=== PATIENT | male | born 1950 | race Caucasian/White ===

== ENCOUNTER → 2020-03-11 14:31 | Outpatient (BNVA) | payer MEDICARE, OTHER, SELFPAY | PROVIDERS: Family Provider Internal Medicine; PCP Internal Medicine; Visit Provider Urology | DX: Z12.5 Encounter for screening for malignant neoplasm of prostate (principal); N40.1 Benign prostatic hyperplasia with lower urinary tract symptoms; R33.8 Other retention of urine | CPT/HCPCS: 81001 ==

== ENCOUNTER → 2021-03-10 10:57 | Outpatient (BNVA) | payer MEDICARE, OTHER, SELFPAY | PROVIDERS: Family Provider Internal Medicine; PCP Internal Medicine; Visit Provider Urology | DX: N40.1 Benign prostatic hyperplasia with lower urinary tract symptoms (principal); R33.8 Other retention of urine; Z12.5 Encounter for screening for malignant neoplasm of prostate | CPT/HCPCS: 81003; 84153 ==

== ENCOUNTER 2022-03-08 08:15 | Outpatient (CLI) | payer MEDICARE, OTHER, SELFPAY | END 2022-03-08 08:16 | disposition home or self-care (01) | LOC: LAB 08:18 | PROVIDERS: PCP Internal Medicine; Visit Provider Urology | DX: Z12.5 Encounter for screening for malignant neoplasm of prostate (principal); C67.5 Malignant neoplasm of bladder neck | CPT/HCPCS: 36415; 84153 ==

== ENCOUNTER → 2022-03-10 08:06 | Outpatient (BNVA) | payer MEDICARE, OTHER, SELFPAY | PROVIDERS: PCP Internal Medicine; Visit Provider Urology | DX: N40.1 Benign prostatic hyperplasia with lower urinary tract symptoms (principal); R33.8 Other retention of urine; Z12.5 Encounter for screening for malignant neoplasm of prostate | CPT/HCPCS: 51741; 51798; 81003; 99213 ==

== ENCOUNTER 2022-03-17 08:01 | Outpatient (CLI) | payer MEDICARE, OTHER, SELFPAY ==
--- NOTE | 2022-03-17 | MM_ITS ---
WS: [id number] DIAGNOSTIC BILATERAL DIGITAL BREAST TOMOSYNTHESIS MAMMOGRAPHY WITH CAD LEFT breast ultrasound, limited HISTORY: LT BREAST MASS COMPARISON: None available. TECHNIQUE: Bilateral craniocaudad, mediolateral oblique, and mediolateral views are submitted with to augie and JACE. Computer aided detection utilized. Breast composition: Fatty replacement of the breast tissue. This is a male breast. No mass or retract ion of the nipple. No enlarged lymph nodes. LEFT breast ultrasound, limited. No abnormality is identified by ultrasound. No mass or nipple retraction. MM/[place] [id number] IMPRESSION: BI-RADS: 1-Negative FOLLOW UP: See Report No mammographic or ultrasound abnormality identified.
--- NOTE | 2022-03-17 08:07 | US_ITS ---
WS: [id number] DIAGNOSTIC BILATERAL DIGITAL BREAST TOMOSYNTHESIS MAMMOGRAPHY WITH CAD LEFT breast ultrasound, limited HISTORY: LT BREAST MASS COMPARISON: None available. TECHNIQUE: Bilateral craniocaudad, mediolateral oblique, and mediolateral views are submitted with to augie and JACE. Computer aided detection utilized. Breast composition: Fatty replacement of the breast tissue. This is a male breast. No mass or retract ion of the nipple. No enlarged lymph nodes. LEFT breast ultrasound, limited. No abnormality is identified by ultrasound. No mass or nipple retraction. US/US breast LT limited* [id number] IMPRESSION: BI-RADS: 1-Negative FOLLOW UP: See Report No mammographic or ultrasound abnormality identified.
== END 2022-03-17 08:02 | disposition home or self-care (01) ==
LOC: RAD 08:02
PROVIDERS: PCP Internal Medicine; Visit Provider Internal Medicine
DX: N63.20 Unspecified lump in the left breast, unspecified quadrant (principal)
CPT/HCPCS: 76642; 77061; 77062

== ENCOUNTER 2022-08-25 07:12 | Outpatient (CLI) | payer MEDICARE, OTHER, SELFPAY ==
--- NOTE | 2022-08-25 07:36 | CT_ITS ---
WS: [id number] LDCT LUNG CANCER SCREENING TECHNIQUE: Noncontrast CT of the chest with coronal and sagittal reformatted images. CLINICAL INFORMATION: NICOTINE DEPENDENCE,CIGARETTES COMPARISON: None. DLP: 83.30 mGy.cm DIvol: Mean CTDIvol: 1.60 (mGy) All CT scans at [facility] use at least one of these dose optimization techniques: automat ed exposure control; mA and/or kV adjustment per patient size (includes targeted exams where dose is matched to clinical indication); or iterative reconstruction. FINDINGS:Mild chronic emphysematous changes. No acute pulmonary infiltrates. No focal pneumonia or pl eural fluid. A few tiny subpleural micronodules in the RIGHT lower lobe. Noncalcified nodule RIGHT lo wer lobe measuring 3.2 mm. A few calcified granulomas. No suspicious pulmonary parenchymal opacities. Normal caliber thoracic aorta. Mild aortic Calcification. Coronary calcification. No mediastinal or h ilar lymphadenopathy. No axillary lymphadenopathy. Small LEFT adrenal adenoma.Adrenal gland is normal. LEFT adrenal adenoma measures 2.1 cm. Normal GE j unction. Hypertrophic changes thoracic spine. Moderate thoracic kyphosis. CT/CT lung screening [id number] IMPRESSION: LUNG-RADS: 2-Benign Appearance or Behavior FOLLOW UP: 12 Month: Continue annual screening with LDCT
== END 2022-08-25 07:13 | disposition home or self-care (01) ==
LOC: RAD 07:14
PROVIDERS: PCP Internal Medicine; Visit Provider Internal Medicine
DX: Z12.2 Encounter for screening for malignant neoplasm of respiratory organs (principal); F17.210 Nicotine dependence, cigarettes, uncomplicated
CPT/HCPCS: 71271

== ENCOUNTER 2023-03-06 08:13 | Outpatient (CLI) | payer MEDICARE, OTHER, SELFPAY ==
[2023-03-06 09:46] LABS: PSA Screen - Urology 3.15 ng/mL (0-4)
== END 2023-03-06 08:14 | disposition home or self-care (01) ==
PROVIDERS: PCP Internal Medicine; Visit Provider Urology
DX: Z12.5 Encounter for screening for malignant neoplasm of prostate (principal)
CPT/HCPCS: 36415; G0103

== ENCOUNTER → 2023-03-09 07:50 | Outpatient (BNVA) | payer MEDICARE, OTHER, SELFPAY | PROVIDERS: PCP Internal Medicine; Visit Provider Urology | DX: N40.1 Benign prostatic hyperplasia with lower urinary tract symptoms (principal); Z12.5 Encounter for screening for malignant neoplasm of prostate; R33.8 Other retention of urine | CPT/HCPCS: 51798; 81003; 99213 ==

== ENCOUNTER 2023-12-07 13:07 | Emergency (ER) | payer MEDICARE, OTHER, SELFPAY ==
[2023-12-07 13:15] VITALS: BP 124/79; PULSE 92; RESP 18; TEMP 36.7; O2SAT 96; BMI 30.2
--- NOTE | 2023-12-07 13:42 | W.ED.WOUNDLC ---
HPI - Wound/Laceration General: Chief Complaint: Wound/Laceration Stated Complaint: cut L leg Time Seen by Provider: 12/07/23 13:42 Source: patient Mode of arrival: ambulatory History of Present Illness: 71-year-old male presents emergency room with complaints of a left calf laceration. Patient was loading it toilet onto a trailer that toilet broke and a piece of the toilet bowl COVID move the medial left lower leg. Unsure of last tetanus. 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 Celiac disease Gout Surgical History History of colonoscopy (~10/2017) 09/2018 H/O circumcision History of cholecystectomy 2019 History of esophagogastroduodenoscopy (EGD) (~10/2017) 09/2018 Family History Denies family history of Anesthesia complication Bleeding disorder Social History Smoking and tobacco/nicotine status: former use of tobacco/nicotine Alcohol intake: current Alcohol intake frequency: holidays/special occasions only Alcohol type: wine Substance/Drug Use: never Adopted: Yes Caregiver/support person: Yes Lives independently: Yes Household members: spouse Housing: House Marital status: Current occupational status: retired Physical Exam Narrative: EXAM NARRATIVE: Examination the wound patient has a 15 cm wound on the medial aspect of the left lower leg. Subcutaneous is exposed a small portion of the gastrocnemius muscle is exposed there is not significant laceration to it. A few superficial fibers appear to have been cut. Patient is able to flex and extend at the ankle without any difficulty. Bleeding is well-controlled. Nurses note states there is 2 lacerations usually 1 laceration noted the other areas were clots of blood. Wound was closed primarily with a running locking suture of 3-0 Prolene after local anesthesia. Procedures Laceration Laceration 1: Site: lower extremity Side (If applicable): left Size (cm): 15 Description: linear Depth: simple, single layer Local Anesthetic: lidocaine 1% and with epi Amount of anesthesia used (mL): 10 Pre-repair: wound explored, irrigated extensively and deep structures intact Skin layer closed with: other (Prolene) Size (cm): 3-0 Number of sutures: 1 Technique: running Course Vital Signs: Vital signs: Vital Signs Temperature 98.1 F 12/07/23 13:15 Pulse Rate 92 12/07/23 13:15 Respiratory Rate 18 12/07/23 13:15 Blood Pressure 124/79 12/07/23 13:15 Pulse Oximetry 96 12/07/23 13:15 MDM - Wound/Laceration Medical Decision Making Wound care instructions given keep wound covered when active apply topical antibiotic [id number] ointment change dressing least once a day sutures removed in 10 to 14 days return for signs of infection Medical Records I reviewed the patient's medical records. No radiology studies performed this visit Discharge Plan Discharge Patient Disposition: Home Clinical Impression: Laceration of leg, left Condition: Stable Prescriptions: No Action trazodone 50 mg tablet 25 mg PO QPM pantoprazole 40 mg tablet,delayed release (DR/EC) 40 mg PO QPM Discharge Orders: Discharge ED (Routine); Ordered 12/07/23 Ordered By: Kamar Velasquez Referrals: Eugenio Gallegos DO [Primary Care Provider] - Discharge Diet: Usual diet Discharge Activity: Increase activity as tolerated Patient Instructions: Laceration (ED), Opioid Safety, Pain Management Activity Restrictions/Additional Instructions: Thank you for choosing [facility] for your healthcare needs today. Please realize this is an emergency room and that we are providing you with a medical screening exam and this may not be complete and all inclusive of all the testing and or work up that you may need to determine your ailment or severity of your illness. It is very important that you follow up as instructed or that you return to the Emergency Department should you have concerns or if your condition changes or worsens in any way. You were seen today for a leg laceration. Stitches were applied. Apply topical eqiq-mrw-zjmswie antibiotic ointment to the wound and keep covered when you are active. Change dressing at least once a day. The sutures should be removed in 10 to 14 days. Your primary care doctor should be able to remove her sutures. If there is any sign of infection return to be reevaluated. Coding Level of Care Code ED Manager [employer] for Kenny Navarro
[2023-12-07] MEDS: lidocaine-epi 1% 20 mL INJ INJECTION (13:51)
[2023-12-07] MEDS: tetanus-dipt-pertussis 0.5 mL SDV IM (14:34)
== END 2023-12-07 14:39 | disposition home or self-care (01) ==
PROVIDERS: Emergency Provider Family Medicine; PCP Internal Medicine
DX: S81.812A Laceration without foreign body, left lower leg, initial encounter (principal); Z87.891 Personal history of nicotine dependence; W26.8XXA Contact with other sharp object(s), not elsewhere classified, initial encounter; Z23 Encounter for immunization
CPT/HCPCS: 12005; 90471; 90715; 99283

== ENCOUNTER 2025-03-05 14:37 | Emergency (ER) | payer MEDICARE, OTHER, SELFPAY ==
[2025-03-05 14:45] VITALS: BP 149/72; PULSE 59; RESP 16; TEMP 36.6; O2SAT 99; BMI 26.9
--- NOTE | 2025-03-05 16:11 | CTR_ITS ---
PROCEDURE INFORMATION: Exam: CT Abdomen And Pelvis With Contrast Exam date and time: 03/05/2025 5:32 PM Age: 74 years old Clinical indication: Abdominal pain; Generalized; Additional info: Abd pain TECHNIQUE: Imaging protocol: Computed tomography of the abdomen and pelvis with contrast. Radiation optimization: All CT scans at this facility use at least one of these dose optimization techniques: automated exposure control; mA and/or kV adjustment per patient size (includes targeted exams where dose is matched to clinical indication); or iterative reconstruction. Contrast material: OMNIPAQUE 350; Contrast volume: 100 ml; Contrast route: INTRAVENOUS (IV); COMPARISON: CT lung screening [id number] 08/25/2022 7:50 AM RADIATION DOSE METRICS: Total DLP (mGy-cm): 707.43 FINDINGS: Liver: Normal. No mass. Gallbladder and biliary ducts: The gallbladder is absent. Pancreas: Normal. No ductal dilation. Spleen: Normal. No splenomegaly. Adrenal glands: There is a 3.1 x 2.0 cm ovoid lesion in the left adrenal gland measuring 64 Hounsfield units which is indeterminate. Consider three-phase adrenal CT or adrenal MRI for further evaluation on a nonemergent basis. Kidneys and ureters: Normal. No hydronephrosis. Stomach and bowel: Unremarkable. No obstruction. No mucosal thickening. Appendix: No evidence of appendicitis. Intraperitoneal space: Unremarkable. No free air. No significant fluid collection. Vasculature: Mild stenosis in the proximal SMA secondary to soft plaque. Lymph nodes: Unremarkable. No enlarged lymph nodes. Urinary bladder: Unremarkable as visualized. Reproductive: Prostate is enlarged measuring 6.3 cm in width. Correlate with PSA. Bones/joints: Unremarkable. No acute fracture. Soft tissues: Fat containing right inguinal hernia with associated fat stranding which can be seen the setting an incarcerated hernia with fat necrosis. CT/CT abdomen pelvis w con* [id number] IMPRESSION: 1. Fat containing right inguinal hernia with associated fat stranding which can be seen the setting an incarcerated hernia with fat necrosis. 2. There is a 3.1 x 2.0 cm ovoid lesion in the left adrenal gland measuring 64 Hounsfield units which is indeterminate. Consider three-phase adrenal CT or adrenal MRI for further evaluation on a nonemergent basis.
[2025-03-05] MEDS: ondansetron 2 mg/ML SDV 2 mL 4 MG IVP (16:27)
[2025-03-05] MEDS: sodium chloride 0.9% 1,000 ML 999 ML IV (16:28)
[2025-03-05] MEDS: morphine 4 mg/mL SDV 1 mL IVP (16:28)
[2025-03-05] MEDS: morphine 4 mg/mL SDV 1 mL 2 MG IVP (16:42)
--- NOTE | 2025-03-05 16:46 | W.ED.ABDPA2 ---
Documented by User: Kamar Velasquez DO 03/06/25 08:54 HPI - Abdominal Pain General: Chief Complaint: Abdominal Pain Stated Complaint: groin hernia Time Seen by Provider: 03/05/25 16:11 History of Present Illness: 74-year-old male presents emergency room with complaints of right lower quadrant abdominal pain patient was mowing the lawn has began to have severe pain right lower quadrant with a bulge he had a bulge before usually seen able to get it to reduce on his own this time he developed nausea and vomiting with it his last normal bowel movement was this morning on arrival here it is extremely firm tender to the touch. No fever sweats or chills. Associated Symptoms: Reports nausea and vomiting; Denies chills, dysuria and fever(s) Related Data Home Medications ?Medication ?Instructions ?Recorded ?Confirmed trazodone 50 mg tablet 25 mg PO QPM 03/10/21 12/07/23 pantoprazole 40 mg tablet,delayed 40 mg PO QPM 03/10/22 12/07/23 release Allergies Allergy/AdvReac Type Severity Reaction Status Date / Time wheat Allergy celiac Verified 03/05/25 14:52 Review of Systems Const: Denies: fever(s) or chills Card: Denies: chest pain Resp: Denies: dyspnea GI: Reports: abdominal pain, nausea and vomiting : Denies: dysuria, urinary frequency or urinary urgency Musc: Denies: neck pain or back pain Skin/Breast: Denies: rash PFSH ED PFSH: Medical History Benign prostatic hyperplasia with urinary retention 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 Celiac disease Gout Surgical History History of colonoscopy (~10/2017) 09/2018 H/O circumcision History of cholecystectomy 2018 History of esophagogastroduodenoscopy (EGD) (~10/2017) 09/2018 Family History Denies family history of Anesthesia complication Bleeding disorder Social History Smoking and tobacco/nicotine status: former use of tobacco/nicotine Alcohol intake: current Alcohol intake frequency: holidays/special occasions only Alcohol type: wine Substance/Drug Use: never Adopted: Yes Caregiver/support person: Yes Lives independently: Yes Household members: spouse Housing: House Marital status: Current occupational status: retired Physical Exam Const: COMMON NORMALS: no acute distress GENERAL APPEARANCE: cooperative and comfortable ORIENTATION/CONSCIOUSNESS: Yes awake, Yes oriented to person, Yes oriented to place and Yes oriented to time HENMT: COMMON NORMALS: normocephalic, atraumatic and hearing grossly normal bilaterally HEAD & SCALP: normocephalic and atraumatic Resp: COMMON NORMALS: normal respiratory effort, No retractions, No use of accessory muscles and clear to auscultation bilaterally AUSCULTATION: clear to auscultation bilaterally Cardio: COMMON NORMALS: regular rate, regular rhythm and No murmurs present (Cardio) RATE: regular rate RHYTHM: regular rhythm GI: COMMON NORMALS: No hepatosplenomegaly present AUSCULTATION: Yes Hypoactive bowel sounds present PALPATION: Yes Tenderness to palpation present (GI), No Guarding due to palpation present (GI) and Yes No hepatosplenomegaly present OTHER: Incarcerated right inguinal hernia Extremity: COMMON NORMALS: normal to inspection, capillary refill normal, no clubbing, cyanosis or edema, no calf tenderness and no pedal edema Neuro: SENSORIUM/ORIENTATION: Yes oriented to person, Yes oriented to place and Yes oriented to time Skin: COMMON NORMALS: no rashes or lesions noted GENERAL SKIN EXAM: no rashes or lesions noted Course Vital Signs: Vital signs: Vital Signs Temperature 97.8 F 03/05/25 14:45 Pulse Rate 86 03/05/25 18:35 Respiratory Rate 16 03/05/25 18:35 Blood Pressure 151/82 03/05/25 18:35 Pulse Oximetry 96 03/05/25 18:35 Oxygen Delivery Me thod Room Air 03/05/25 18:01 MDM - Abdominal Pain Medical Decision Making After treating patient with morphine for pain was able to directly reduce the hernia was a pretty significant amount of bowel within the hernia was extremely tense but we were able to reduce with the patient in Trendelenburg it has not recurred. CT official read is awaiting wet read on the CT there appears to be some fat within the inguinal hernia defect but there is no bowel present. Patient is feeling much better he has been able to set up when he does not have any further pain. Reached out to Dr. Alexis awaiting return call additionally we are waiting on the official read on the CT. Care signed out to Dr. Glass at change of shift. See final notes for diagnosis and disposition. Patient signed out to me at shift change pending CT scan. Fortunately, CT scan shows that bowels have been adequately reduced from previous inguinal hernia. There is still small amount of fat in the right inguinal canal which shows some stranding, but symptoms are better and he can now walk and move without any pain. I spoke with on-call surgery who recommends that he follow-up in clinic and offered that he is available tomorrow if the patient is available to be seen. He will be discharged in stable and improved condition knowing that he is always welcome back in the emergency department if symptoms return, but otherwise will follow-up not emergently with Dr. Alexis Lab Data 03/05/25 16:30 03/05/25 16:30 Labs/Radiology: Radiology Impressions Abdomen/Pelvis CT 03/05/25 16:11 IMPRESSION: 1. Fat containing right inguinal hernia with associated fat stranding which can be seen the setting an incarcerated hernia with fat necrosis. 2. There is a 3.1 x 2.0 cm ovoid lesion in the left adrenal gland measuring 64 Hounsfield units which is indeterminate. Consider three-phase adrenal CT or adrenal MRI for further evaluation on a nonemergent basis. Laboratory Results WBC 10.39 10^3/uL (3.29-11.43) 03/05/25 16:30 RBC 5.45 10^6/uL (3.85-5.65) 03/05/25 16:30 Hgb 16.50 g/dL (11.27-16.99) 03/05/25 16:30 Hct 51.2 % (37-53) 03/05/25 16:30 MCV 93.9 fl (82-101) 03/05/25 16:30 MCH 30.3 pg (27-33) 03/05/25 16:30 MCHC 32.2 g/dL (30-55) 03/05/25 16:30 RDW 12.5 % (12.1-15.1) 03/05/25 16:30 Plt Count 243 10^3/cmm (157-399) 03/05/25 16:30 MPV 10.1 fL (7.4-10.4) 03/05/25 16:30 Neut % (Auto) 84.6 % 03/05/25 16:30 Lymph % (Auto) 11.3 % 03/05/25 16:30 [place] % (Auto) 3.2 % 03/05/25 16:30 Eos % (Auto) 0.0 % 03/05/25 16:30 Baso % (Auto) 0.5 % 03/05/25 16:30 Neut # (Auto) 8.80 10^3/uL (1.8-7.7) H 03/05/25 16:30 Lymph # (Auto) 1.2 10^3/uL (0.8-4.8) 03/05/25 16:30 [place] # (Auto) 0.3 10^3/uL (0.2-0.9) 03/05/25 16:30 Eos # (Auto) 0.0 10^3/uL (0.0-0.8) 03/05/25 16:30 Baso # (Auto) 0.1 10^3/uL (0.0-0.1) 03/05/25 16:30 Nucleated RBC % (auto) 0 % 03/05/25 16:30 Nucleated RBCs # 0.0 /100WBC 03/05/25 16:30 Sodium 140 mmol/L (136-145) 03/05/25 16:30 Potassium 4.0 mmol/L (3.5-5.1) 03/05/25 16:30 Chloride 106 mmol/L (98-107) 03/05/25 16:30 Carbon Dioxide 21 mmol/L (22-29) L 03/05/25 16:30 Anion Gap 17.0 (5-19) 03/05/25 16:30 BUN 23 mg/dL (8-23) 03/05/25 16:30 Creatinine 1.0 mg/dL (0.7-1.2) 03/05/25 16:30 GFR Calculation Not Reportable 03/05/25 16:30 Glucose 111 mg/dL (65-115) 03/05/25 16:30 Calculated Osmolality 294 mOsm/kg (285-295) 03/05/25 16:30 Lactic Acid 1.5 mmol/L (0.5-2.2) 03/05/25 16:30 Calcium 9.5 mg/dL (8.5-10.5) 03/05/25 16:30 Total Bilirubin 0.6 mg/dL (0.15-1.2) 03/05/25 16:30 AST 17 U/L (0-40) 03/05/25 16:30 ALT 15 U/L (0-41) 03/05/25 16:30 Alkaline Phosphatase 86 U/L (40-130) 03/05/25 16:30 Total Protein 7.4 g/dL (6.6-8.7) 03/05/25 16:30 Albumin 4.6 g/dL (3.5-5.2) 03/05/25 16:30 Globulin 2.8 g/dL (1.3-4.6) 03/05/25 16:30 Lipase 20 U/L (13-60) 03/05/25 16:30 Urine Color Yellow (Yellow) 03/05/25 17:52 Urine Appearance Cloudy (CLEAR) A 03/05/25 17:52 Urine pH 7.0 (5-7) 03/05/25 17:52 Ur Specific [place] 1.031 (1.005-1.030) H 03/05/25 17:52 Urine Protein 2+ (Negative) A 03/05/25 17:52 Urine Glucose (UA) Negative (Normal) 03/05/25 17:52 Urine Ketones 1+ (Negative) H 03/05/25 17:52 Urine Blood Negative (Negative) 03/05/25 17:52 Urine Nitrate Negative (Negative) 03/05/25 17:52 Urine Bilirubin Negative (Negative) 03/05/25 17:52 Urine Urobilinogen 0.2 mg/dL (Negative) 03/05/25 17:52 Ur Leukocyte Esterase Negative (Negative) 03/05/25 17:52 Urine RBC 0-2 /hpf (0-2) 03/05/25 17:52 Urine WBC 0-5 /hpf (0-5) 03/05/25 17:52 Ur Squamous Epith Cells 0-5 /hpf (0-5) 03/05/25 17:52 Amorphous Sediment Not Reportable 03/05/25 17:52 Urine Bacteria None seen /hpf (NONE) 03/05/25 17:52 Hyaline Casts 0.81 /lpf 03/05/25 17:52 Discharge Plan Discharge Patient Disposition: Home Clinical Impression: Inguinal hernia Condition: Stable Prescriptions: No Action trazodone 50 mg tablet 25 mg PO QPM pantoprazole 40 mg tablet,delayed release (DR/EC) 40 mg PO QPM Discharge Orders: Discharge ED (Routine); Ordered 03/05/25 Ordered By: Vaibhav Glass Referrals: Naseem Alexis MD [Physician, General Surgery] - 1-3 days Referral Note: clinic 03/06 if possible Clinical Impression: Inguinal hernia Moiz Barrera MD [Primary Care Provider, Family Practice] Discharge Diet: Usual diet Discharge Activity: Increase activity as tolerated Patient Instructions: Inguinal Hernia (ED) Activity Restrictions/Additional Instructions: CT scan shows that the hernia was successfully reduced and no longer represents a surgical emergency which has to occur immediately. That being said, hernia can return at any given time. Please do not lift heavy objects or squat down or strain too hard as this can cause the hernia to return. I spoke with the on-call surgeon who would like to see you in his clinic as soon as possible. If you have time tomorrow, he can see you in clinic. If you have any worsening symptoms or concerns you are always welcome back in the emergency department. Print Language: Tajik Sign Out Sign Out Data: Patient Sign Out occurred on 03/05/25 at 18:15. Patient's care was discussed, and care was transferred from Kamar Velasquez DO to Vaibhav Glass MD. Post-Handoff Eval: see MDM Coding Level of Care Code ED Social Media Community Manager for [employer] Fwd Documented by User: Vaibhav Glass MD 03/05/25 18:26 HPI - Abdominal Pain General: Chief Complaint: Abdominal Pain Stated Complaint: groin hernia Time Seen by Provider: 03/05/25 16:11 Related Data Home Medications ?Medication ?Instructions ?Recorded ?Confirmed trazodone 50 mg tablet 25 mg PO QPM 03/10/21 12/07/23 pantoprazole 40 mg tablet,delayed 40 mg PO QPM 03/10/22 12/07/23 release Allergies Allergy/AdvReac Type Severity Reaction Status Date / Time wheat Allergy celiac Verified 03/05/25 14:52 PFS ED PFSH: Medical History Benign prostatic hyperplasia with urinary retention 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 Celiac disease Gout Surgical History History of colonoscopy (~10/2017) 09/2018 H/O circumcision History of cholecystectomy 2018 History of esophagogastroduodenoscopy (EGD) (~10/2017) 09/2018 Family History Denies family history of Anesthesia complication Bleeding disorder Social History Smoking and tobacco/nicotine status: former use of tobacco/nicotine Alcohol intake: current Alcohol intake frequency: holidays/special occasions only Alcohol type: wine Substance/Drug Use: never Adopted: Yes Caregiver/support person: Yes Lives independently: Yes Household members: spouse Housing: House Marital status: Current occupational status: retired Course Vital Signs: Vital signs: Vital Signs Temperature 97.8 F 03/05/25 14:45 Pulse Rate 86 03/05/25 18:35 Respiratory Rate 16 03/05/25 18:35 Blood Pressure 151/82 03/05/25 18:35 Pulse Oximetry 96 03/05/25 18:35 Oxygen Delivery Me thod Room Air 03/05/25 18:01 MDM - Abdominal Pain Medical Decision Making Patient signed out to me at shift change pending CT scan. Fortunately, CT scan shows that bowels have been adequately reduced from previous inguinal hernia. There is still small amount of fat in the right inguinal canal which shows some stranding, but symptoms are better and he can now walk and move without any pain. I spoke with on-call surgery who recommends that he follow-up in clinic and offered that he is available tomorrow if the patient is available to be seen. He will be discharged in stable and improved condition knowing that he is always welcome back in the emergency department if symptoms return, but otherwise will follow-up not emergently with Dr. Alexis Lab Data 03/05/25 16:30 03/05/25 16:30 Labs/Radiology: Radiology Impressions Abdomen/Pelvis CT 03/05/25 16:11 IMPRESSION: 1. Fat containing right inguinal hernia with associated fat stranding which can be seen the setting an incarcerated hernia with fat necrosis. 2. There is a 3.1 x 2.0 cm ovoid lesion in the left adrenal gland measuring 64 Hounsfield units which is indeterminate. Consider three-phase adrenal CT or adrenal MRI for further evaluation on a nonemergent basis. Laboratory Results WBC 10.39 10^3/uL (3.29-11.43) 03/05/25 16:30 RBC 5.45 10^6/uL (3.85-5.65) 03/05/25 16:30 Hgb 16.50 g/dL (11.27-16.99) 03/05/25 16:30 Hct 51.2 % (37-53) 03/05/25 16:30 MCV 93.9 fl (82-101) 03/05/25 16:30 MCH 30.3 pg (27-33) 03/05/25 16:30 MCHC 32.2 g/dL (30-55) 03/05/25 16:30 RDW 12.5 % (12.1-15.1) 03/05/25 16:30 Plt Count 243 10^3/cmm (157-399) 03/05/25 16:30 MPV 10.1 fL (7.4-10.4) 03/05/25 16:30 Neut % (Auto) 84.6 % 03/05/25 16:30 Lymph % (Auto) 11.3 % 03/05/25 16:30 [place] % (Auto) 3.2 % 03/05/25 16:30 Eos % (Auto) 0.0 % 03/05/25 16:30 Baso % (Auto) 0.5 % 03/05/25 16:30 Neut # (Auto) 8.80 10^3/uL (1.8-7.7) H 03/05/25 16:30 Lymph # (Auto) 1.2 10^3/uL (0.8-4.8) 03/05/25 16:30 [place] # (Auto) 0.3 10^3/uL (0.2-0.9) 03/05/25 16:30 Eos # (Auto) 0.0 10^3/uL (0.0-0.8) 03/05/25 16:30 Baso # (Auto) 0.1 10^3/uL (0.0-0.1) 03/05/25 16:30 Nucleated RBC % (auto) 0 % 03/05/25 16:30 Nucleated RBCs # 0.0 /100WBC 03/05/25 16:30 Sodium 140 mmol/L (136-145) 03/05/25 16:30 Potassium 4.0 mmol/L (3.5-5.1) 03/05/25 16:30 Chloride 106 mmol/L (98-107) 03/05/25 16:30 Carbon Dioxide 21 mmol/L (22-29) L 03/05/25 16:30 Anion Gap 17.0 (5-19) 03/05/25 16:30 BUN 23 mg/dL (8-23) 03/05/25 16:30 Creatinine 1.0 mg/dL (0.7-1.2) 03/05/25 16:30 GFR Calculation Not Reportable 03/05/25 16:30 Glucose 111 mg/dL (65-115) 03/05/25 16:30 Calculated Osmolality 294 mOsm/kg (285-295) 03/05/25 16:30 Lactic Acid 1.5 mmol/L (0.5-2.2) 03/05/25 16:30 Calcium 9.5 mg/dL (8.5-10.5) 03/05/25 16:30 Total Bilirubin 0.6 mg/dL (0.15-1.2) 03/05/25 16:30 AST 17 U/L (0-40) 03/05/25 16:30 ALT 15 U/L (0-41) 03/05/25 16:30 Alkaline Phosphatase 86 U/L (40-130) 03/05/25 16:30 Total Protein 7.4 g/dL (6.6-8.7) 03/05/25 16:30 Albumin 4.6 g/dL (3.5-5.2) 03/05/25 16:30 Globulin 2.8 g/dL (1.3-4.6) 03/05/25 16:30 Lipase 20 U/L (13-60) 03/05/25 16:30 Urine Color Yellow (Yellow) 03/05/25 17:52 Urine Appearance Cloudy (CLEAR) A 03/05/25 17:52 Urine pH 7.0 (5-7) 03/05/25 17:52 Ur Specific [place] 1.031 (1.005-1.030) H 03/05/25 17:52 Urine Protein 2+ (Negative) A 03/05/25 17:52 Urine Glucose (UA) Negative (Normal) 03/05/25 17:52 Urine Ketones 1+ (Negative) H 03/05/25 17:52 Urine Blood Negative (Negative) 03/05/25 17:52 Urine Nitrate Negative (Negative) 03/05/25 17:52 Urine Bilirubin Negative (Negative) 03/05/25 17:52 Urine Urobilinogen 0.2 mg/dL (Negative) 03/05/25 17:52 Ur Leukocyte Esterase Negative (Negative) 03/05/25 17:52 Urine RBC 0-2 /hpf (0-2) 03/05/25 17:52 Urine WBC 0-5 /hpf (0-5) 03/05/25 17:52 Ur Squamous Epith Cells 0-5 /hpf (0-5) 03/05/25 17:52 Amorphous Sediment Not Reportable 03/05/25 17:52 Urine Bacteria None seen /hpf (NONE) 03/05/25 17:52 Hyaline Casts 0.81 /lpf 03/05/25 17:52 All radiology interpretation(s) finalized by discharge Discharge Plan Discharge Patient Disposition: Home Clinical Impression: Inguinal hernia Condition: Stable Prescriptions: No Action trazodone 50 mg tablet 25 mg PO QPM pantoprazole 40 mg tablet,delayed release (DR/EC) 40 mg PO QPM Discharge Orders: Discharge ED (Routine); Ordered 03/05/25 Ordered By: Vaibhav Glass Referrals: Naseem Alexis MD [Physician, General Surgery] - 1-3 days Referral Note: clinic 03/06 if possible Clinical Impression: Inguinal hernia Moiz Barrera MD [Primary Care Provider, Family Practice] Discharge Diet: Usual diet Discharge Activity: Increase activity as tolerated Patient Instructions: Inguinal Hernia (ED) Activity Restrictions/Additional Instructions: CT scan shows that the hernia was successfully reduced and no longer represents a surgical emergency which has to occur immediately. That being said, hernia can return at any given time. Please do not lift heavy objects or squat down or strain too hard as this can cause the hernia to return. I spoke with the on-call surgeon who would like to see you in his clinic as soon as possible. If you have time tomorrow, he can see you in clinic. If you have any worsening symptoms or concerns you are always welcome back in the emergency department. Print Language: Tajik Sign Out Sign Out Data: Patient Sign Out occurred on 03/05/25 at 18:15. Patient's care was discussed, and care was transferred from Kamar Velasquez DO to Vaibhav Glass MD. Post-Handoff Eval: see MDM Coding Level of Care Code ED Social Media Community Manager for Kenny Navarro
[2025-03-05 16:55] LABS: Basophils # 0.1 10^3/uL (0.0-0.1); Basophils % 0.5 %; Hematocrit 51.2 % (37-53); Lymphocytes # 1.2 10^3/uL (0.8-4.8); Lymphocytes % 11.3 %; Mean Corpuscular HGB Conc 32.2 g/dL (30-55); Mean Corpuscular Hemoglobin 30.3 pg (27-33); Mean Corpuscular Volume 93.9 fl (82-101); Mean Platelet Volume 10.1 fL (7.4-10.4); Monocytes # 0.3 10^3/uL (0.2-0.9); Monocytes % 3.2 %; Neutrophils % 84.6 %; Nucleated Red Blood Cells % 0 %; Platelet Count 243 10^3/cmm (157-399); Red Blood Count 5.45 10^6/uL (3.85-5.65); Red Cell Distribution Width 12.5 % (12.1-15.1); White Blood Count 10.39 10^3/uL (3.29-11.43)
[2025-03-05 17:10] VITALS: BP 143/85; PULSE 74; RESP 16; O2SAT 99
[2025-03-05 17:16] LABS: Alanine Aminotransferase 15 U/L (0-41); Albumin Level 4.6 g/dL (3.5-5.2); Alkaline Phosphatase 86 U/L (40-130); Aspartate Amino Transferase 17 U/L (0-40); Blood Urea Nitrogen 23 mg/dL (8-23); Calcium 9.5 mg/dL (8.5-10.5); Carbon Dioxide 21 mmol/L (22-29); Chloride 106 mmol/L (98-107); Creatinine Clr Calc Pharmacy 65.9459; Globulin 2.8 g/dL (1.3-4.6); Glucose 111 mg/dL (65-115); Lipase 20 U/L (13-60); Osmolality Calculated 294 mOsm/kg (285-295); Sodium 140 mmol/L (136-145); Total Bilirubin 0.6 mg/dL (0.15-1.2); Total Protein 7.4 g/dL (6.6-8.7)
[2025-03-05 17:20] LABS: Lactic Sepsis W/Reflex 1.5 mmol/L (0.5-2.2)
[2025-03-05] MEDS: iohexol 350 mg/mL 500 mL Btl (per mL) IV (17:35)
--- NOTE | 2025-03-05 17:57 | ECG_ITS ---
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 Measurements Intervals [place] Rate: 74 P: 46 MT: 173 QRS: -32 QRSD: 93 T: -6 QT: 366 QTc: 408 Interpretive Statements SINUS RHYTHM WITH MARKED SINUS ARRHYTHMIA POSSIBLE LEFT ATRIAL ENLARGEMENT [-0.1mV P-WAVE IN V1/V2] LEFT AXIS DEVIATION [QRS AXIS < -30] POSSIBLE RIGHT VENTRICULAR CONDUCTION DELAY [RSR (QR) IN V1/V2] Compared to ECG 10/25/2017 16:48:30 No significant changes Electronically Signed On 03-05-2025 21:39:25 CDT by Damion Moyer M.D. [email or web address]
[2025-03-05 18:01] VITALS: BP 151/82; PULSE 87; O2SAT 95
[2025-03-05 18:09] LABS: Bilirubin Urine Negative (Negative); Blood Urine Negative (Negative); Glucose Urine UA Negative (Normal); Ketones Urine 1+ (Negative); Leukocyte Esterase Urine Negative (Negative); Nitrate Urine Negative (Negative); Protein Urine 2+ (Negative); Urine Appearance Cloudy (CLEAR); Urine Color Yellow (Yellow); Urobilinogen Urine 0.2 mg/dL (Negative)
[2025-03-05 18:11] LABS: Add Urine Microscopic? YES; Bacteria Urine None Seen /hpf; Hyaline Casts Urine 0.81 /lpf; RBC Urine 0-2 /hpf (0-2); Squamous Epithelial Cell Urine 0-5 /hpf (0-5); WBC Urine 0-5 /hpf (0-5)
[2025-03-05 18:13] LABS: Add Urine Culture? No; Specific Gravity, Urine 1.031 (1.005-1.030)
[2025-03-05 18:35] VITALS: BP 151/82; PULSE 86; RESP 16; O2SAT 96
== END 2025-03-05 18:35 | disposition home or self-care (01) ==
PROVIDERS: Family Medicine; Emergency Provider Student in an Organized Health Care Education/Training Program; PCP Family Medicine
DX: K40.30 Unilateral inguinal hernia, with obstruction, without gangrene, not specified as recurrent (principal); Z87.891 Personal history of nicotine dependence
CPT/HCPCS: 74177; 80053; 81001; 83605; 83690; 85025; 93005; 96361; 96374; 96375; 99285; J2270; J2405; J7030